=== PATIENT | female | born 1970 | race Caucasian/White ===

== ENCOUNTER 2024-05-03 06:10 | Day surgery (SDC) | payer OTHER, SELFPAY ==
[2024-05-03 08:16] VITALS: BMI 49.5
[2024-05-03 08:17] VITALS: BP 127/85; BMI 49.5
[2024-05-03 09:55] VITALS: BP 120/70
[2024-05-03 10:10] VITALS: BP 115/56
== END 2024-05-03 10:35 | disposition home or self-care (01) ==
LOC: GI 06:10
PROVIDERS: ATTENDING PHYSICIAN Internal Medicine Gastroenterology
DX: Z12.11 Encounter for screening for malignant neoplasm of colon (principal); D12.2 Benign neoplasm of ascending colon; K63.5 Polyp of colon; K57.30 Diverticulosis of large intestine without perforation or abscess without bleeding; K64.8 Other hemorrhoids; Z83.719 Family history of colon polyps, unspecified
CPT/HCPCS: 45380; 88305